=== PATIENT | male | born 1955 | race Hispanic/Latino ===

== ENCOUNTER 2016-10-09 10:00 | Outpatient (RCR) | payer OTHER ==
[~2016-10-09 10:00] MED LIST: ASPI-504 PO; INSU100V6 SC; METF500T PO; PRAS10TA6 PO; SULF-221 PO
== END 2016-10-10 | disposition home or self-care (01) ==
LOC: PT 10:00
PROVIDERS: ATTEND Surgery
DX: E11.621 Type 2 diabetes mellitus with foot ulcer (principal); Z89.512 Acquired absence of left leg below knee; Z89.431 Acquired absence of right foot; Z48.00 Encounter for change or removal of nonsurgical wound dressing
CPT/HCPCS: 97597; G8990; G8991

== ENCOUNTER 2016-12-06 10:00 | Outpatient (RCR) | payer OTHER | END 2016-12-09 09:59 | disposition home or self-care (01) | LOC: PT 10:00 | PROVIDERS: ATTEND Surgery | DX: E11.621 Type 2 diabetes mellitus with foot ulcer (principal); Z89.512 Acquired absence of left leg below knee; Z89.431 Acquired absence of right foot; Z48.00 Encounter for change or removal of nonsurgical wound dressing | CPT/HCPCS: 97597; G8990; G8991 ==